=== PATIENT | male | born 1985 | race Caucasian/White ===

== ENCOUNTER 2016-09-07 01:16 | Emergency (ER) | payer OTHER ==
--- NOTE | ~2016-09-07 | CR72 ---
[facility]. [facility] A Service of [facility] RADIOLOGY TEXT RESULTS PATIENT: NASIR ZEE LOCATION: SED : 83 UNIT #: [id number] AGE: [address]: Reid Dasilva MD SEX: M ORDER DR: [id number] [place] [address] [id number] MR#: [id number] Acc #: [id number] NAME: NASIR ZEE : 1985 SEX: M STUDY DATE/TIME: 09/07/2016 01:15 UNIT: SED ROOM: STUDY DESCRIPTION: CR Chest Single View Portable Attending Physician: Reid Dasilva M.D. Ordering Physician: Reid Dasilva M.D. Primary Care Physician: Primary Care Physician No MEDICAL IMAGING REPORT This report is preliminary unless electronic signature is present. EXAM Portable chest, 09/07 at 01:15 INDICATION Drug overdose tonight with shortness of air. FINDINGS AP portable chest is compared with 02/13/2013. Cardiac and mediastinal contours are normal. There is some mild atelectasis in the bases. Lungs otherwise are clear. No pneumothorax. IMPRESSION Mild bibasilar atelectasis, otherwise no active disease. Dictated by... Jin Parish Jr., M.D. THIS IS AN ELECTRONICALLY VERIFIED REPORT Jin Parish Jr., M.D. at 09/07/2016 9:31 PM CLAUDE/tera TD: 09/07/2016 16:02 JOB #: [id number] MEDICAL IMAGING REPORT
--- NOTE | ~2016-09-07 | EKG ---
PATIENT: NASIR ZEE UNIT #: [id number] Ventricular Rate: 118 BPM Atrial Rate: 118 BPM P-R Interval: 144 ms QRS Duration: 104 ms Q-T Interval: 330 ms QTC Calculation(Bezet): 462 ms P Cowan: 56 degrees Calculated R Cowan: 82 degrees Calculated T Cowan: 43 degrees Diagnosis Line: Sinus tachycardia Diagnosis Line: Incomplete right bundle branch block Diagnosis Line: Poor R wave progression questionable lead position Diagnosis Line: or body habitus Diagnosis Line: Otherwise normal ECG Diagnosis Line: When compared with ECG of 16-JUL-2014 09:13, Diagnosis Line: Vent. rate has increased BY 41 BPM Diagnosis Line: Minimal criteria for Anterior infarct are now Diagnosis Line: Present Diagnosis Line: Confirmed by SNEHAL PERRY MD ([id number]) on 09/11/2016 Diagnosis Line: 5:34:09 PM INTERPRETING MD: ORLANDO ESCALERA
[2016-09-07 01:15] LABS: BASOPHIL# 0.1 X10e3 (0-0.3); BASOPHIL% 1.2 % (0-2.5); EOSINOPHIL% 0.3 % (0.0-7.0); HEMATOCRIT 42.7 % (38.0-50.0); HEMOGLOBIN 14.3 gm/dL (13.0-16.0); LYMPHOCYTE# 1.7 X10e3 (1.0-3.5); LYMPHOCYTE% 17.5 % (17.0-45.0); MEAN CELL VOLUME 88.9 FL (83-96); MEAN CORPUSCULAR HEMOGLOBIN 29.7 PG (28-34); MEAN CORPUSCULAR HGB CONC 33.4 g/dL (30-36); MONOCYTE# 1.1 X10e3 (0-1.0); MONOCYTE% 11.8 % (3.0-12.0); NEUTROPHIL# 6.6 X10e3 (1.5-7.1); NEUTROPHIL% 69.2 % (40-75); PLATELET COUNT 215 X10e3 (140-420); RED CELL DISTRIBUTION WIDTH 14.5 % (11.0-15.5); WHITE BLOOD COUNT 9.6 X10e3 (4.0-10.5)
[2016-09-07 01:16] LABS: DIFF IND NO
[~2016-09-07 01:16] MED LIST: HEROIN; METHAMPHETAMINE
[2016-09-07 01:33] LABS: ALBUMIN SERUM 4.7 g/dL (3.5-5.0); ALKALINE PHOSPHATASE 55 U/L (32-92); ALT (SGPT) 153 U/L (10-40); AST (SGOT) 74 U/L (10-42); BILIRUBIN, DIRECT 0.2 mg/dL (0.0-0.2); BILIRUBIN,INDIRECT 0.8 mg/dL (0.0-0.9); BLOOD UREA NITROGEN 19 mg/dL (9-23); BUN/CREATININE RATIO 21.11; CALCIUM SERUM 9.5 mg/dL (8.4-10.2); CARBON DIOXIDE 26 mmol/L (22-31); CHLORIDE 101 mmol/L (100-111); CREATININE SERUM 0.9 mg/dL (0.6-1.4); GLOM FILT RATE Estimated ABOVE60 mL/min (>60); GLUCOSE FASTING 104 mg/dL (70-110); POTASSIUM 3.2 mmol/L (3.5-5.1); PROTEIN TOTAL SERUM 8.1 g/dL (6.0-8.3); SALICYLATE <4.0 mg/dL; SODIUM 137 mmol/L (135-145)
[2016-09-07 01:34] LABS: ACETAMINOPHEN <10 ug/mL; ALCOHOL BLOOD <5 mg/dL (0)
[2016-09-07 03:41] LABS: URINE SOURCE CLEAN CATCH
[2016-09-07 03:44] LABS: URINE APPEARANCE CLEAR; URINE BILIRUBIN NEG (NEG); URINE BLOOD NEG (NEG); URINE COLOR YELLOW; URINE GLUCOSE NEG (NORM); URINE KETONE 1+ (NEG); URINE LEUKOCYTE ESTERASE NEG (NEG); URINE NITRATE NEG (NEG); URINE PROTEIN NEG (NEG); URINE UROBILINOGEN 0.2 MG/DL (NORM)
[2016-09-07 03:45] LABS: MICRO INDICATED? NO
[2016-09-07 03:53] LABS: AMPHETAMINE POS (NEG); BARBITURATES NEG (NEG); BENZODIAZEPINES NEG (NEG); COCAINE NEG (NEG); MARIJUANA NEG (NEG); OPIATES NEG (NEG); TRICYCLIC ANTIDEPRESSANTS NEG (NEG); U METHADONE NEG (NEG)
[2016-09-07] MEDS ORDERED: ATIVAN PO (04:07)
== END 2016-09-07 04:09 | disposition home or self-care (01) ==
LOC: SED 01:16
PROVIDERS: Emergency Medicine
DX: F41.1 Generalized anxiety disorder (principal); F15.10 Other stimulant abuse, uncomplicated; F17.210 Nicotine dependence, cigarettes, uncomplicated
CPT/HCPCS: 36415; 71010; 80048; 80076; 80307; 81003; 85025; 93005; 99283; G0480